=== PATIENT | female | born 1960 | race Caucasian/White ===

== ENCOUNTER 2017-01-14 18:11 | Inpatient (IN) | payer BC ==
--- NOTE | 2017-01-14 19:55 | RAD ---
TWO VIEWS LEFT ELBOW: Date: 01-14-17 History: Left elbow injury. FINDINGS: There is a nondisplaced fracture involving the radial head/neck junction. No additional fracture is seen. There is no evidence of a dislocation. IMPRESSION: Nondisplaced fracture at the left radial head/neck junction. POS: [facility]
--- NOTE | 2017-01-14 19:56 | RAD ---
THREE VIEWS LEFT WRIST: Date: 01-14-17 History: Left wrist injury. FINDINGS: There is a peripheral intravenous catheter overlying the lateral aspect of the wrist. There is no fr acture or dislocation. There is very slight ulnar minus configuration. No other osseous abnormality. IMPRESSION: No acute osseous abnormality left wrist. POS: [facility]
--- NOTE | 2017-01-14 19:58 | RAD ---
SINGLE VIEW RIGHT HUMERUS: Date: 01-14-17 History: Mechanical fall at home, left shoulder pain. FINDINGS: There is a spiral type fracture involving the proximal diaphysis of the right humerus. The distal fr acture fragment is displaced laterally and posterior by just greater than one-full shaft width. Xu ohumeral relationship is not well evaluated on this exam but there does not appear to be a dislocati on but a fracture in this region cannot be entirely excluded. IMPRESSION: Spiral type fracture with displacement of fracture fragments involving the proximal right humeral di aphysis. POS: [facility]
[2017-01-14] MEDS ORDERED: Ondansetron ODT 4 MG TAB PO PRN (21:56)
[2017-01-14] MEDS ORDERED: Dextrose 5% in Water 1,000 ML IV PRN (21:56)
[2017-01-14] MEDS ORDERED: HYDROcodone/Acetaminophen 10/325 mg Tablet PO PRN ×2 (21:56)
[2017-01-14] MEDS ORDERED: Ondansetron HCl/PF 4 MG/2 ML Vial IVP PRN (21:56)
[2017-01-14] MEDS ORDERED: Dextrose 50% Abboject 50 ML SYRINGE SLOW IVP PRN (21:56)
[2017-01-14] MEDS ORDERED: Promethazine HCl 25 MG/ML VIAL IM PRN (21:56)
--- NOTE | 2017-01-14 22:56 | HP ---
This is Robert Blackmon PA-C dictating for Dr. Robert Hawk. ATTENDING PHYSICIAN: Dr. Robert Hawk. CONSULTING PHYSICIAN: Dr. Crowe for Orthopedics. CHIEF COMPLAINT: Evaluation for status post fall. HISTORY OF PRESENT ILLNESS: This is a 56-year-old female who presented to the ED complaining of rig ht shoulder pain, status post mechanical fall at home, patient reported falling forward and landing in her forearms. The patient was given pain medication, IV fluids and Zofran via EMS. Patient elton ed any LOC, denies any head trauma, denies any injury or pain other than bilateral arms. The patien t was noted taking Xarelto for her atrial fibrillation. PAST MEDICAL HISTORY: Includes epiglottitis, atrial fibrillation, hypertension. PAST SURGICAL HISTORY: Includes kidney stone removal and surgical history of tubal ligation. PSYCHIATRIC HISTORY: Anxiety and depression. SOCIAL HISTORY: Denies any alcohol, drug or tobacco use. LABORATORY DATA: No laboratory findings. REVIEW OF SYSTEMS: All 10 systems were reviewed, otherwise stated in HPI were negative. PHYSICAL EXAMINATION: VITAL SIGNS: Blood pressure 103/56, pulse 71, respirations 18, pain 9/10, 99% on room air. GENERAL: No acute distress. HEENT: She is atraumatic, normocephalic. No JVD, no masses. Trachea is midline. PULMONARY: Clear bilaterally via auscultation. CARDIOVASCULAR: S1, S2, regular rate and rhythm. ABDOMEN: Soft, nontender, nondistended. EXTREMITIES: Upper extremities are in bilateral splints. Lower extremities, there are no deformiti es, moving bilateral lower extremities well. NEUROLOGIC: She does feel somewhat anxious, but otherwise GCS of 15. SKIN: Warm and dry. RADIOLOGIC FINDINGS: Showed humerus fracture on the right, nondisplaced fracture on the left radial head, wrist x-ray was negative. ASSESSMENT: 1. Status post fall. 2. Humerus fracture and radial head fracture. PLAN: Orthopedic consultation for operative fixation. The patient will be then placed n.p.o. for m idnight, continue IV fluids, pain medication and restart her home medications as soon as possible. The patient will be initiated with gastritis and deep venous thrombosis prophylaxis and patient is d iscussed with Dr. Hawk and agrees with the above plan.
[2017-01-14] MEDS: ALPRAZolam 1 MG TAB PO PRN (23:21)
[2017-01-14] MEDS ORDERED: Acetaminophen 1,000 MG in Premix Bag 1 BAG IVPB SCH (23:59)
[2017-01-15] MEDS ORDERED: Sodium Chloride 0.9% 1,000 ML IV SCH (00:01)
[2017-01-15 00:06] VITALS: BMI 26.3
[2017-01-15] MEDS: Fentanyl 100 MCG/2 ML VIAL SLOW IVP SCH ×3 (01:42→08:26)
[2017-01-15 05:41] LABS: #Lymphocytes 1.2 thou/uL (1.20-3.40); #Monocytes 0.4 thou/uL (0.11-0.59); #Neutrophils 3.1 thou/uL (1.40-6.50); %Basophils 0.1 % (0.0-1.0); %Eosinophils 0.3 % (0.0-10.0); %Lymphocytes 25.6 % (21.0-51.0); %Monocytes 9.1 % (0.0-10.0); Hematocrit 31.8 % (36.0-47.0); Mean Platelet Volume 6.2 fL (7.4-10.4); Red Blood Cell (RBC) Count 3.15 mill/uL (4.20-5.40); White Blood Cell (WBC) Count 4.7 thou/uL (4.8-10.8)
[2017-01-15 05:46] LABS: PTT 32.3 SEC (22.9-36.1); Prothrombin Time 14.8 SEC (12.0-14.7)
[2017-01-15] MEDS ORDERED: Acetaminophen 1,000 MG in Premix Bag 1 BAG IVPB SCH (06:00)
[2017-01-15 06:13] LABS: Anion Gap 10 mmol/L (10-20); BUN (Urea Nitrogen) 13 mg/dL (9.8-20.1); Calc. Creatinine Clearance 104 mL/min (70-130); Calcium 8.9 mg/dL (7.8-10.44); Carbon Dioxide 24 mmol/L (22-29); Chloride 109 mmol/L (98-107); Estimated GFR-MDRD 78
--- NOTE | 2017-01-15 08:13 | CON ---
DATE OF CONSULTATION: 01/14/2017 CHIEF COMPLAINT: Bilateral arm pain. HISTORY OF PRESENT ILLNESS: Ms. Yo is a 56-year-old female who lost her balance yesterday even ing and fell. She landed on her bilateral arms. She sustained injuries to the right shoulder and l eft elbow. She was found to have a proximal humerus fracture on the right and a nondisplaced left r adial neck fracture on the left. She was admitted to the hospital for pain control. She has been c omfortable although she does complain of a headache currently. She takes Ecru multiple times a day at baseline for back pain. PAST MEDICAL HISTORY: Chronic pain, hypertension, atrial fibrillation on Xarelto, and epiglottitis. PAST SURGICAL HISTORY: Previous kidney stone removal and tubal ligation. PSYCHIATRIC: History of anxiety and depression. SOCIAL HISTORY: The patient denies alcohol, tobacco or drug use. REVIEW OF SYSTEMS: Positive for shoulder and elbow pain, otherwise negative except for positives in the HPI. PHYSICAL EXAMINATION: VITAL SIGNS: Temperature is 97.9, pulse is 67, respiratory rate 16, oxygen saturation 96, blood pre ssure 109/69. GENERAL: The patient is alert, lying supine in no apparent distress. RESPIRATORY: Breathing comfortably. ABDOMEN: Soft, nontender, and nondistended. MUSCULOSKELETAL: The patient's right arm is in a splint, which is well padded. She is neurovascula rly intact in the hands bilaterally. She is able to flex and extend the digits. She has some bilat eral arm slings. The left arm is splinted as well. IMAGES: Right shoulder x-rays demonstrate advanced glenohumeral osteoarthritis. The patient has a proximal one third diaphyseal fracture of the humerus with displacement. The patient's left elbow x -rays demonstrated nondisplaced radial neck fracture. IMPRESSION: Right proximal humerus fracture and left radial neck fracture. PLAN: I had a discussion with the patient. At this point, she wants to pursue nonoperative treatme nt. I have described the risk and benefits of both surgical treatment and nonsurgical treatment. S he is hesitant and apprehensive for surgery, so I think it would be appropriate to try a nonoperativ e management of her fractures. Certainly, the radial neck fracture will heal without need for furth er intervention. The right proximal humerus fracture will be treated in her current splint. I woul d like to see her in 7-10 days in the clinic to change her to a clamshell brace and re-x-ray for olivia leblanc. She can discharge to home once pain is controlled and she is mobilizing.
[2017-01-15] MEDS: ALPRAZolam 1 MG TAB PO PRN (08:25)
[2017-01-15] MEDS ORDERED: HYDROcodone/Acetaminophen 10/325 mg Tablet PO PRN ×3 (08:36→09:44)
[2017-01-15] MEDS ORDERED: Nitrofurantoin Monohyd/M-Cryst 100 MG CAP PO SCH (09:00)
[2017-01-15] MEDS ORDERED: Famotidine/PF 20 mg/2ml Vial SLOW IVP SCH (09:00)
[2017-01-15] MEDS ORDERED: Metoprolol Tartrate 25 MG TAB PO SCH (09:00)
[2017-01-15] MEDS: HYDROcodone/Acetaminophen 10/325 mg Tablet PO SCH ×2 (10:15→14:58)
--- NOTE | 2017-01-15 12:07 | PRG-2 ---
DATE OF SERVICE: 01/15/2017 SUBJECTIVE: This is a 56-year-old female who is status post mechanical fall at home and was found t o have a humerus fracture and radial head fracture, humerus fracture on the right and left radial he ad. Patient has been seen by Orthopedic Surgery and requests a nonoperative treatment. She current ly due to injuries on both arms is unable to feed herself, is able to get up and walk around. Says that she is awaiting to figure out where she could go and stay with her sister or her where she will have people to help take care of her. She reports having some pain. She normally takes fo ur 10/325 [place] at home usually. Denies any other problems or complaints other than that at this t arnel. OBJECTIVE: VITAL SIGNS: Temperature is 97.9, pulse 66, respirations are 14, O2 sat is 97% on room air, blood p ressure is 107/68. GENERAL: No acute distress. HEENT: Atraumatic, normocephalic. PULMONARY: Clear to auscultation bilaterally. Symmetric chest expansion, normal rise. Nonlabored breathing. CARDIOVASCULAR: Regular rate and rhythm. ABDOMEN: Soft, nontender and nondistended. EXTREMITIES: Upper extremities are in bilateral splints. They are dressed in Erich bandages at this time as well. Lower extremities, there are no deformities. No edema noted. NEUROLOGIC: No focal neuro deficits. Alert and oriented x3. IMAGING DATA: Radiologic finding from yesterday showed humerus fracture on the right and nondisplac ed fracture on the left radial head. Wrist x-ray was negative. LABORATORY DATA: White blood cell count was 4.7, hemoglobin was 10.6, hematocrit was 31.8, MCV was 101, platelet count was 210. PT was 14.8, INR was 1.1, aPTT was 32.3. Sodium was 139, potassium wa s 4.1, chloride was 109, carbon dioxide was 24, BUN was 13, creatinine was 0.77, glucose was 102 and calcium was 8.9. ASSESSMENT: 1. She is status post fall. 2. Right humerus fracture. 3. Left radial head fracture. 4. Acute traumatic pain. PLAN: We will continue to have her work with PT, OT and see how she does getting around, moving medardo und. Family is to be coming around later today and we will continue to figure out where she is to g o and who will help take care of her. We will switch her pain management. We will continue on her home dose of [place] and then give some [place] for breakthrough pain as well. We will continue to asse ss pain and we will continue to monitor vital signs and check labs as needed. We will await figurin g out where the patient has a safe place to go home due to help being taken care of as she is unable to feed herself and we will continue her work with PT and OT. The patient was seen with Dr. Valencia. The plan of care was discussed with Dr. Valencia. This progress note needs to be cosigned by Dr. Arnaud Valencia.
[2017-01-15 12:23] VITALS: TEMP 97.8
[2017-01-15 18:16] VITALS: BP 88/52
--- NOTE | 2017-01-16 01:44 | DIS ---
DATE OF ADMISSION: 01/14/2017 DATE OF DISCHARGE: 01/15/2017 ADMISSION DIAGNOSES: 1. Status post mechanical fall. 2. Right humerus fracture. 3. Left radius fracture. 4. Acute traumatic pain. 5. Chronic pain, on chronic opiate medications. DISCHARGE DIAGNOSES: 1. Status post mechanical fall. 2. Right humerus fracture. 3. Left radius fracture. 4. Acute traumatic pain. 5. Chronic pain, on chronic opiate medications. CONSULTANTS: Dr. Crowe, Orthopedic Surgery. PROCEDURES: None. HOSPITAL COURSE: Piper Yo is a 56-year-old female, who presented to [place] [facility], status post fall at home. The patient was evaluated in the emergency room and found to have the above injuries. Trauma services admitted with Orthopedic Surgery consultants. After consultation with Orthopedic Surgery, the patient declined acute operative intervention. Her pain was controlled via p.o. analge sics. She was able to mobilize. Family and patient felt like she would be okay at home with family support to help with assist her with her ADLs. She was tolerating a general diet. Orthopedic surg amirah planned for outpatient followup. She was medically stable for discharge on 01/15/2017. DISCHARGE DISPOSITION: Home. DISCHARGE CONDITION: Good. PHYSICAL EXAMINATION: As documented in daily progress note dated 01/15/2017. DISCHARGE MEDICATIONS: The patient was discharged on Lamar q.4-6 hours p.r.n. for pain as we ll as her home medications. FOLLOWUP INSTRUCTIONS: The patient should follow up with Orthopedic Surgery as directed by fifi. She may call for an appointment. She does not need to follow up with Trauma Services formall y, but may call their office with any questions. DISCHARGE INSTRUCTIONS: Discharge instructions were provided to the patient prior to discharge. Krupa villasenor vocalized understanding. The patient should keep her dressings clean, dry and intact. She should be nonweightbearing bilateral upper extremities. This is merely a summary of the patient's hospitalization. For more in depth information, please se e her medical record in its entirety.
[2017-01-16] MEDS ORDERED: HYDROcodone/Acetaminophen 10/325 mg Tablet PO PRN ×2 (06:00)
== END 2017-01-15 17:06 | disposition home or self-care (01) | DRG 563 ==
LOC: ERS 18:11 → SURG B 21:50
PROVIDERS: ADMIT Specialist; ATTEND Specialist
PROC: 2W3AX1Z Immobilization of Right Upper Arm using Splint (ICD-10-PCS; principal; 2017-01-14)
PROC: 2W3DX1Z Immobilization of Left Lower Arm using Splint (ICD-10-PCS; 2017-01-14)
DX: S42.341A Displaced spiral fracture of shaft of humerus, right arm, initial encounter for closed fracture (principal); I48.91 Unspecified atrial fibrillation; I10 Essential (primary) hypertension; G89.11 Acute pain due to trauma; S52.135A Nondisplaced fracture of neck of left radius, initial encounter for closed fracture; W01.0XXA Fall on same level from slipping, tripping and stumbling without subsequent striking against object, initial encounter; Z79.02 Long term (current) use of antithrombotics/antiplatelets; F41.9 Anxiety disorder, unspecified; F32.9 Major depressive disorder, single episode, unspecified; G89.29 Other chronic pain; Z79.891 Long term (current) use of opiate analgesic
CPT/HCPCS: 24500; 24650; 36415; 80048; 85025; 85610; 85730; 93005; G0390; G8978-GP-CL; G8979-GP-CJ; G8987-GO-CN; G8988-GO-CL; J0131; J3010; S0028

== ENCOUNTER 2017-12-11 22:39 | Observation (INO) | payer BC, SELFPAY ==
[2017-12-12] MEDS ORDERED: Fioricet 325/50/40 mg Tablet PO SCH (00:30)
[2017-12-12] MEDS ORDERED: Ondansetron HCl/PF 4 MG/2 ML Vial IVP PRN (00:46)
[2017-12-12] MEDS ORDERED: Acetaminophen 325 MG TAB PO PRN (00:46)
[2017-12-12] MEDS ORDERED: Ondansetron ODT 4 MG TAB SL PRN (00:46)
[2017-12-12] MEDS: ALPRAZolam 1 MG TAB PO PRN ×4 (01:12→20:39)
[2017-12-12] MEDS: Sodium Chloride 0.9% 1,000 ML IV SCH ×2 (01:12→08:36)
[2017-12-12] MEDS ORDERED: HYDROcodone/Acetaminophen 10/325 mg Tablet PO SCH ×2 (01:15→06:00)
[2017-12-12 01:26] VITALS: BMI 25.9
[2017-12-12] MEDS ORDERED: Guaifenesin DM 100-10/5 ML UDCUP PO PRN (01:49)
[2017-12-12] MEDS: Famotidine 20 MG TAB PO SCH ×2 (08:30→20:37)
[2017-12-12 10:07] LABS: #Lymphocytes 1.2 thou/uL (1.20-3.40); #Monocytes 0.4 thou/uL (0.11-0.59); #Neutrophils 2.5 thou/uL (1.40-6.50); %Eosinophils 1.1 % (0.0-10.0); %Lymphocytes 28.2 % (21.0-51.0); %Monocytes 9.2 % (0.0-10.0); %Neutrophils 60.5 % (42.0-75.0); Hemoglobin 11.5 g/dL (12.0-16.0); Mean Corpuscular HGB CONC 34.2 g/dL (32.0-36.0); Mean Corpuscular Hemoglobin 34.3 pg (27.0-31.0); Mean Platelet Volume 6.4 fL (7.4-10.4); Platelet Count 208 thou/uL (130-400); RBC Distribution Width 11.9 % (11.5-14.5); Red Blood Cell (RBC) Count 3.35 mill/uL (4.20-5.40); White Blood Cell (WBC) Count 4.1 thou/uL (4.8-10.8)
[2017-12-12 10:25] LABS: Anion Gap 13 mmol/L (10-20); BUN (Urea Nitrogen) 13 mg/dL (9.8-20.1); Calc. Creatinine Clearance 98 mL/min (70-130); Carbon Dioxide 21 mmol/L (22-29); Chloride 109 mmol/L (98-107); Estimated GFR-MDRD 74; Glucose 85 mg/dL (70-105); Potassium 3.9 mmol/L (3.5-5.1); Sodium 139 mmol/L (136-145)
[2017-12-12] MEDS: HYDROcodone/Acetaminophen 10/325 mg Tablet PO PRN ×2 (12:26→20:39)
[2017-12-12] MEDS: Meclizine HCl 12.5 MG TAB PO PRN (12:27)
[2017-12-12] MEDS ORDERED: Lorazepam 1 MG TAB PO SCH (12:30)
--- NOTE | 2017-12-12 12:38 | HP ---
CHIEF COMPLAINT: Numbness and tingling sensation of the left face. HISTORIAN: The patient. HISTORY OF PRESENT ILLNESS: This is a 57-year-old female with past medical history of atrial fibrillation, hypertension, anxiety, vertigo, who is presenting with left-sided facial numbness which patient reports woke her up from a nap on the afternoon of the day of admission. Patient then went to [facility] for evaluation of left-sided facial numbness. CT scan of the head was done which was negative; however, the patient was sent to be monitored and for rule out CVA. REVIEW OF SYSTEMS: Positive for numbness, tingling, dizziness, lightheadedness , otherwise as documented in the HPI, all other systems were reviewed and are negative. PAST MEDICAL HISTORY: Hypertension, atrial fibrillation, anxiety. PAST SURGICAL HISTORY: Kidney stone removal, tubal ligation. PSYCHIATRIC HISTORY: Anxiety. SOCIAL HISTORY: Patient denies alcohol use. The patient denies any illicit drug use. The patient denies any smoking history. FAMILY HISTORY: Reviewed and noncontributory. ALLERGIES: STEROIDS, CODEINE, LEVAQUIN, LEVOFLOXACIN. CURRENT MEDICATIONS: Flecainide, Xarelto, tramadol, [place], metoprolol tartrate 12.5, meclizine, Xanax. PHYSICAL EXAMINATION: VITAL SIGNS: Blood pressure 130/73, heart rate of 76, respiratory rate of 16, temperature of 97.8, O2 sat of 98 on room air. GENERAL: Patient is lying in bed, does not appear to be in any acute distress. The patient is speaking in full sentences. HEENT: Normocephalic, atraumatic. Pupils are equal, round, and reactive to light. Extraocular muscles are intact. NECK: Supple, no lymphadenopathy. RESPIRATORY: Clear to auscultation bilaterally. No wheezes, no rales, no crackles appreciated. CARDIOVASCULAR: Positive S1, S2, regular rate and rhythm. No murmurs, no gallops, no rubs appreciated. ABDOMEN: Nontender, nondistended. Positive bowel sounds in all quadrants. BACK: Full range of motion or tenderness. EXTREMITIES: 5/5 upper extremity strength, 5/5 lower extremity strength. NEUROLOGIC: The patient's NIH stroke scale is 0. SKIN: Warm, dry, and intact. PSYCHIATRIC: Normal affect. EKG shows third-degree AV block. LABORATORY DATA: WBC 4.1, hemoglobin is 11.5, hematocrit 33.6. Sodium is 139, potassium is 3.9, chloride is 109, carbon dioxide 21, BUN is 13, creatinine 0.80. CT of the head was negative. ASSESSMENT AND PLAN: This is a 57-year-old female being admitted for rule out cerebrovascular accident. At this point, we have ordered an echo to evaluate the patient's heart. The patient's ABCD2 score is less than 2. Patient did not meet admission criteria; however, patient was sent from [facility]. Therefore, patient was admitted to be observed overnight. We started the patient on atorvastatin. Patient takes aspirin at home, so we will continue these medications. Patient's symptoms have resolved. The patient did have a history of uneven facial asymmetry. 1. Hypertension. Continue the patient on her home medication. 2. History of atrial fibrillation. Continue the patient on her home medication. 3. Gastrointestinal and deep venous thrombosis prophylaxis. Continue the patient on current medications. EUN[facility]
[2017-12-12] MEDS ORDERED: Iopamidol 370 76% 100 ML VIAL ONE (14:23)
--- NOTE | 2017-12-12 15:03 | CT ---
CTA NECK WITH CONTRAST: HISTORY: Dizziness and TIA symptoms. COMPARISON: None. TECHNIQUE: Multiple contiguous axial images were obtained in a CTA neck with contrast, and 3D and sagittal and c oronal MIP reformats were performed. FINDINGS: The aortic arch is unremarkable. The common carotid arteries and subclavian arteries show no signifi cant atherosclerotic disease. The left common carotid artery shows no significant atherosclerotic disease and branches into normal caliber internal and external carotid arteries. No significant stenosis per NASCET criteria is seen on either side. Both vertebral arteries are patent without significant atherosclerotic disease. The left vertebral a rtery is patent. There is an apparent filling defect in the left internal jugular vein, which could represent flow art ifact or could represent a thrombus in the left internal jugular vein. The left internal jugular vei n is smaller in size than the right internal jugular vein. No mucosal abnormality is seen in the nec k. No cervical adenopathy is appreciated. IMPRESSION: 1. No evidence of significant carotid artery stenosis. 2. Possible thrombus in the left internal jugular vein. Correlate with history of recent central ve nous catheter in this location. POS: [facility]
--- NOTE | 2017-12-12 15:22 | PDOC.PN ---
- Subjective Encounter Start Date: 12/12/17 Encounter Start Time: 11:30 Subjective: pt up in bed complains of some tingling to her left lower lip - Objective Resuscitation Status: Resuscitation Status FULL:Full Resuscitation Vital Signs & Weight: Vital Signs (12 hours) Temp Pulse Pulse Pulse Resp BP BP 12/12/17 12:00 98.6 F 76 16 12/12/17 09:24 67 69 129/74 133/70 12/12/17 09:23 129/74 133/70 12/12/17 08:25 97.6 F 68 16 12/12/17 08:00 98.4 F 63 16 12/12/17 04:00 97.6 F 68 16 BP Pulse Ox 12/12/17 12:00 106/56 L 97 12/12/17 09:24 12/12/17 09:23 12/12/17 08:25 12/12/17 08:00 104/63 97 12/12/17 04:00 106/62 98 Weight Weight 176 lb I&O: 12/11/17 12/12/17 12/13/17 06:59 06:59 06:59 Intake Total 1050 Balance 1050 Result Diagrams: 12/12/17 09:55 12/12/17 09:55 Phys Exam - Physical Examination Neck: no nodes, no JVD, supple, full ROM Respiratory: no wheezing, no rales, no rhonchi, wheezing present, clear to auscultation bilateral Cardiovascular: RRR, no significant murmur, no rub, gallop, irregular Gastrointestinal: soft, non-tender, no distention, positive bowel sounds Musculoskeletal: no edema, pulses present, edema present Neurological: non-focal, normal sensation, moves all 4 limbs Dx/Plan (1) TIA (transient ischemic attack) Code(s): G45.9 - TRANSIENT CEREBRAL ISCHEMIC ATTACK, UNSPECIFIED Status: Acute (2) HTN (hypertension) Code(s): I10 - ESSENTIAL (PRIMARY) HYPERTENSION Status: Acute (3) Afib Code(s): I48.91 - UNSPECIFIED ATRIAL FIBRILLATION Status: Acute - Plan pt to have MRI brain and will get cta neck to rule out stenosis -: echo also ordered -: will conitnue home meds -: pt on eliquis will continue * . Review of Systems - Review of Systems Cardiovascular: negative: chest pain, palpitations, orthopnea, paroxysmal nocturnal dyspnea, edema, light headedness, other Gastrointestinal: negative: Nausea, Vomiting, Abdominal Pain, Diarrhea, Constipation, Melena, Hematochezia, Other Genitourinary: negative: Dysuria, Frequency, Incontinence, Hematuria, Retention , Other Other: mild tingling to left lower lip - Medications/Allergies Allergies/Adverse Reactions: Allergies Allergy/AdvReac Type Severity Reaction Status Date / Time codeine Allergy Verified 12/12/17 00:56 levofloxacin [From Levaquin] Allergy Verified 12/12/17 00:56 STEROID SHOTS Allergy Intermediate Uncoded 12/12/17 00:56 Medications: Current Medications Hydrocodone Bitart/Acetaminophen ([place] 10/325) 1 tab PO QID PRN PRN Reason: Moderate Pain (4-6) Last Admin: 12/12/17 12:26 Dose: 1 tab Alprazolam (Xanax) 1 mg PO QIDPRN PRN PRN Reason: Anxiety Last Admin: 12/12/17 14:33 Dose: 1 mg Atorvastatin Calcium (Lipitor) 80 mg PO HS [facility] Famotidine (Pepcid) 20 mg PO BID [facility] Last Admin: 12/12/17 08:30 Dose: 20 mg Flecainide Acetate (Tambocor) 150 mg PO BID [facility] Guaifenesin/Dextromethorphan (Robitussin Dm) 15 ml PO Q4H PRN PRN Reason: Cough Lisinopril (Zestril) 2.5 mg PO DAILY [facility] Meclizine HCl (Antivert) 12.5 mg PO BIDPRN PRN PRN Reason: Dizziness Last Admin: 12/12/17 12:27 Dose: 12.5 mg Rivaroxaban (Xarelto) 20 mg PO QPM-WM [facility] Sodium Chloride (Flush - Normal Saline) 10 ml IVF Q12HR [facility] Last Admin: 12/12/17 08:31 Dose: Not Given Sodium Chloride (Flush - Normal Saline) 10 ml IVF PRN PRN PRN Reason: Saline Flush
--- NOTE | 2017-12-12 15:42 | MRI ---
MRI OF THE BRAIN WITHOUT CONTRAST: 12/12/17 COMPARISON: CTA of the neck, 12/12/17. HISTORY: Numbness on the left side of the face and mouth down left arm since last night. TECHNIQUE: Multiplanar and multisequence MRI images were obtained of the brain without contrast. FINDINGS: The brain demonstrates normal signal intensity on all obtained sequences. No restricted diffusion is seen to suggest an acute infarction. There is no evidence of hydrocephalus, intracranial hemorrhage or extra-axial fluid collection. The e xpected flow voids are present. The corpus callosum, pituitary, and craniocervical junction are unrem arkable. The calvarium and overlying soft tissues are unremarkable. The visualized paranasal sinuses and masto id air cells are well aerated. IMPRESSION: No evidence of acute intracranial abnormality. POS: [facility]
[2017-12-12] MEDS ORDERED: Flecainide 50 MG TAB PO SCH (15:45)
[2017-12-12] MEDS ORDERED: Rivaroxaban 10 MG TAB PO SCH (17:00)
[2017-12-12] MEDS: Atorvastatin Calcium 40 MG TAB PO SCH (20:37)
[2017-12-12] MEDS: Flecainide 50 MG TAB PO SCH (20:38)
[2017-12-12] MEDS: Rivaroxaban 10 MG TAB PO SCH (20:39)
[2017-12-12] MEDS ORDERED: Topiramate 25 MG TAB PO SCH (21:00)
--- NOTE | 2017-12-13 00:59 | CON ---
DATE OF CONSULTATION: 12/12/2017 REFERRING PHYSICIAN: Dr. Bharathi Turpin. REASON FOR CONSULTATION: Left-sided paresthesia. HISTORY OF PRESENT ILLNESS: Ms. Yo is a 57-year-old female who has been consulted for evaluation of left-sided paresthesia. Patient reports that yesterday, she woke up from a nap with sudden onset of left-sided facial numbness. Few minutes later, she developed the numbness and tingling on the left upper extremity. This concerned her and thus she called EMS to rule out stroke. She was taken to the [facility], where she had a CT scan of the head done, which was unremarkable. She was then transferred over to [place] for further evaluation. She reports that she also had dizziness with this episode. She also felt left facial droop. Her symptoms have mostly resolved since being here except she continues to have numbness and tingling in the left side of the lips as well as feels like her left face was drooping. She also continues to feel dizziness and lightheadedness. She feels as if everything is spinning around, she states that she has a history of severe anxiety but with this episode, she does not think that she was anxious. She also reports of having history of migraine headaches in the past, but has been headache free for several months; however, over the past few days, she has been having increasing episodes of feeling of seeing halo around objects as well as shadow lagging behind the object. This have been coming and going intermittently throughout the day for the past few days. She denies any headaches associated with these episodes. She reports that she has a history of atrial fibrillation and high blood pressure and recently, she has noted fluctuations in her blood pressure throughout the day, where it tends to run really low and goes elevated. The highest blood pressure that she noted is 135 to 140. PAST MEDICAL HISTORY: Significant for hypertension, atrial fibrillation, anxiety, history of vertigo and migraines. PAST SURGICAL HISTORY: Significant for kidney stone removal, tubal ligation. SOCIAL HISTORY: She denies smoking, alcohol use, or illicit drug use. FAMILY HISTORY: Noncontributory. CURRENT MEDICATIONS: Include a flecainide, Xarelto, tramadol, [place], metoprolol , Xanax, and meclizine. ALLERGIES: Include STEROIDS, CODEINE, LEVAQUIN, and LEVOFLOXACIN. REVIEW OF SYSTEMS: As mentioned in the HPI, otherwise negative. PHYSICAL EXAMINATION: VITAL SIGNS: Blood pressure of 112/58, pulse of 80, temperature of 98.4, respirations of 16, O2 sats of 97% on room air. GENERAL: Well-developed, well-nourished female in no apparent distress. RESPIRATORY: Clear to auscultation bilaterally. CARDIOVASCULAR: Regular rate and rhythm. NEUROLOGIC: Mental status: Patient is awake, alert, oriented x3. Speech and language: Fluent speech. Cranial nerves: Pupils are 3 mm and reactive. Visual gallahger are intact. Extraocular muscle movement are intact. No nystagmus noted. Face is symmetric. Tongue and uvula are midline. Motor exam showed normal tone and bulk with 5/5 strength in both upper and lower extremities. Sensory: Sensation is intact and symmetric. Deep tendon reflexes : 2+ reflexes in both upper and lower extremities. Babinski: Plantar responses flexion bilaterally. Coordination intact to [id number] and finger tapping bilaterally. LABORATORY DATA: Reviewed, which included CBC, BMP, which is significant for hemoglobin of 11.5, hematocrit 33.6, WBC of 4.1, otherwise unremarkable. IMAGING STUDIES: MRI brain without contrast was reviewed, which showed no acute intracranial abnormality and CT angiogram of the head and neck was reviewed, which showed no acute intracranial or extracranial vascular abnormality. Per Radiology, there may be a possible thrombus in the left intrajugular vein. IMPRESSION: 1. Transient episode of left-sided paresthesia. 2. Migraine aura. 3. Anxiety. ASSESSMENT AND PLAN: Ms. Yo is a 57-year-old female who presented with the episodes of left-sided paresthesia. This could be secondary to anxiety, migraine with aura, or transient ischemic attack. I had a lengthy discussion about different treatment options for migraine aura as well as have discussed about getting her stress and anxiety under control. I initially recommended Topamax for migraine prevention; however, during my review of chart I discovered that she has a history of kidney stone. For this reason, I would avoid Topamax for future use. She may be tried on low-dose amitriptyline. She is extremely concerned about medication side effects and how they react with flecainide and Xarelto. For this reason, it may be best for her to be seen by neuropsychology service director and let them approve amitriptyline to see if it is okay for this patient to start on medication. She may be followed up with her primary care physician. No further neurological workup needed from my standpoint. Thank you for consultation. EUNICE
[2017-12-13] MEDS ORDERED: Lisinopril 2.5 MG TAB PO SCH (09:00)
[2017-12-13] MEDS: Famotidine 20 MG TAB PO SCH ×2 (09:21→22:22)
[2017-12-13] MEDS: HYDROcodone/Acetaminophen 10/325 mg Tablet PO PRN ×4 (09:22→22:23)
[2017-12-13] MEDS: Flecainide 50 MG TAB PO SCH ×2 (09:22→22:22)
[2017-12-13] MEDS: ALPRAZolam 1 MG TAB PO PRN ×3 (09:28→20:28)
[2017-12-13] MEDS ORDERED: cloNIDine 0.1 MG TAB PO SCH (13:45)
[2017-12-13] MEDS: Meclizine HCl 12.5 MG TAB PO PRN (18:17)
[2017-12-13 19:15] VITALS: TEMP 98.5
[2017-12-13 20:06] VITALS: BP 101/59
[2017-12-13] MEDS: Rivaroxaban 10 MG TAB PO SCH (22:22)
[2017-12-13] MEDS: Atorvastatin Calcium 40 MG TAB PO SCH (22:22)
--- NOTE | 2017-12-14 02:02 | DIS ---
DATE OF ADMISSION: 12/11/2017 DATE OF DISCHARGE: 12/13/2017 PRIMARY CARE PHYSICIAN: Out of town. PRIMARY CARDIOVASCULAR SURGEON: Out of town. DISCHARGE DIAGNOSES: 1. Left-sided paraesthesias transient ischemic attack versus migraine aura. 2. 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 3. Migraine aura. 4. History of atrial fibrillation on chronic anticoagulation. 5. Hypertension. 6. Anxiety. DISCHARGE MEDICATIONS: Remain the same as admission, resume home medications. New medication, cloni dine 0.1 mg p.o. t.i.d. p.r.n. Resume Xarelto 20 mg at bedtime and flecainide 150 p.o. b.i.d., lisin opril 2.5 mg daily. PROCEDURES DONE IN THE HOSPITAL: 1. MRI of the brain which is unremarkable for any acute changes. CT angio, which shows possible lef t-sided IJ thrombus without any significant carotid artery disease. 2. Transthoracic echocardiogram, which shows grade I/III diastolic dysfunction without any thrombus. EF is 55%-60%. HISTORY OF PRESENT ILLNESS: Ms. oY is a 57-year-old female with past medical history as above, who presented to the emergency room with complaints of numbness and tingling sensation of the left fa ce. She had a normal CT scan done in the emergency room, EKG showed third-degree AV block. She was admitted on observation status. Patient was started on atorvastatin, takes aspirin at home. Please see admission history and physical for further details. HOSPITAL COURSE: Patient was seen by Neurology and underwent MRI of the brain and CT angio. She was found to have normal MRI and the diagnosis was likely transient ischemic attack versus migraine aura . Dr. Roldan saw the patient for neurology and recommended amitriptyline, but the patient refused. e also refused atorvastatin, which was ordered for her. She would rather discuss this with her own [facility] physician and cardiovascular surgeon. Echo was unremarkable. CT angio showed possible left IJ thrombus. I discussed this case briefly by Dr. Thompson was colon and rectal surgeon for cardiovascular surgeon. At this time, he has reviewed the results and in h is opinion, it might be actually a thrombus and current dose of Xarelto is sufficient. Once again be cause the patient wants to follow up with her own cardiovascular surgeon and is hemodynamically stabl e, she will be discharged and resume her Xarelto. I have seen and examined the patient prior to discharge and I have answered multitude of her question s and most of these needing to be addressed by her primary care physician. I have directed to her PC P. PHYSICAL EXAMINATION: GENERAL: This morning is unremarkable. Vital signs are stable. CHEST: Clear to auscultation bilaterally. HEART: Rate and rhythm is regular without any murmur, rubs, or gallops. NEUROLOGIC: Nonfocal. She will be discharged. Discharge plan was discussed extensively with the patient who somewhat appea rs unsatisfied, but I have emphasized that her acute issues have resolved and she would need to discu ss the chronic issues with her PCP and cardiovascular surgeon in [facility].
--- NOTE | 2017-12-14 19:20 | EKG ---
Test Reason : Blood Pressure : / mmHG Vent. Rate : 070 BPM Atrial Rate : 070 BPM P-R Int : 232 ms QRS Dur : 120 ms QT Int : 478 ms P-R-T Axes : 069 053 055 degrees QTc Int : 516 ms Sinus rhythm with 1st degree A-V block Non-specific intra-ventricular conduction delay T wave abnormality, consider anterior ischemia Abnormal ECG Confirmed by DARIEL KUMARI DO ([id number]), staff editor DENIA DESIR ([id number]) on 12/14/2017 7:19:50 PM Referred By: Confirmed By:DARIEL KUMARI DO
== END 2017-12-13 22:39 | disposition home or self-care (01) ==
LOC: ERS 22:39 → 2SE 23:55
PROVIDERS: ADMIT Internal Medicine; ATTEND Internal Medicine
DX: R20.2 Paresthesia of skin (principal); G43.109 Migraine with aura, not intractable, without status migrainosus; I10 Essential (primary) hypertension; I48.91 Unspecified atrial fibrillation; Z79.01 Long term (current) use of anticoagulants; Z79.02 Long term (current) use of antithrombotics/antiplatelets; Z79.899 Other long term (current) drug therapy; Z91.041 Radiographic dye allergy status; Z88.5 Allergy status to narcotic agent
CPT/HCPCS: 36415; 70498; 70551; 80048; 85025; 93005; 93306; 96360; 96361; A4216; G0378; G8978-GP-CJ; G8979-GP-CJ; G8980-GP-CJ; G8987-GO-CI; G8988-GO-CI; G8989-GO-CI; G8996-GN-CH; G8997-GN-CH

== ENCOUNTER 2018-01-03 15:31 | Observation (INO) | payer SELFPAY ==
[2018-01-03 16:47] LABS: #Lymphocytes 1.4 thou/uL (1.20-3.40); #Monocytes 0.3 thou/uL (0.11-0.59); #Neutrophils 2.4 thou/uL (1.40-6.50); %Basophils 1.2 % (0.0-1.0); %Eosinophils 1.1 % (0.0-10.0); %Lymphocytes 33.6 % (21.0-51.0); %Monocytes 7.6 % (0.0-10.0); %Neutrophils 56.7 % (42.0-75.0); Hemoglobin 11.3 g/dL (12.0-16.0); Mean Corpuscular HGB CONC 31.7 g/dL (32.0-36.0); Mean Corpuscular Hemoglobin 32.5 pg (27.0-31.0); Mean Platelet Volume 6.9 fL (7.4-10.4); Platelet Count 230 thou/uL (130-400); RBC Distribution Width 12.4 % (11.5-14.5); Red Blood Cell (RBC) Count 3.48 mill/uL (4.20-5.40); White Blood Cell (WBC) Count 4.2 thou/uL (4.8-10.8)
--- NOTE | 2018-01-03 16:56 | RAD ---
PORTABLE CHEST ONE VIEW: Date: 01-03-18 Time: 4:16 p.m. History: Chest pain FINDINGS: The heart size is normal. The lungs are well expanded without focal areas of consolidation, pneumotho raxes, or pleural effusions. There is an old fracture of the right humerus. IMPRESSION: No radiographic evidence of acute cardiopulmonary process. POS: H
[2018-01-03 17:12] LABS: ALT (SGPT) 17 U/L (8-55); AST (SGOT) 21 U/L (5-34); Albumin 4.2 g/dL (3.5-5.0); Alkaline Phosphatase 80 U/L (40-150); Anion Gap 12 mmol/L (10-20); BUN (Urea Nitrogen) 13 mg/dL (9.8-20.1); Bilirubin, Total 0.5 mg/dL (0.2-1.2); Calc. Creatinine Clearance 0 mL/min (70-130); Calcium 9.4 mg/dL (7.8-10.44); Carbon Dioxide 23 mmol/L (22-29); Chloride 108 mmol/L (98-107); Estimated GFR-MDRD 73; Globulin 3.2 g/dL (2.4-3.5); Glucose 91 mg/dL (70-105); Lipase 72 U/L (8-78); Protein, Total 7.4 g/dL (6.0-8.3); Sodium 139 mmol/L (136-145)
[2018-01-03 17:16] LABS: CKMB 0.4 ng/mL (0-6.6); Troponin I Less than 0.010 ng/mL (< 0.028)
[2018-01-03 18:43] VITALS: BMI 25.7
[2018-01-03] MEDS ORDERED: Nitroglycerin 0.4 MG TAB (25 Tab Bottle) PO PRN (20:03)
[2018-01-03] MEDS ORDERED: HYDROcodone/Acetaminophen 10/325 mg Tablet PO PRN (20:03)
[2018-01-03] MEDS ORDERED: Guaifenesin DM 100-10/5 ML UDCUP PO PRN (20:03)
[2018-01-03] MEDS ORDERED: ALPRAZolam 1 MG TAB PO PRN (20:03)
[2018-01-03] MEDS ORDERED: Acetaminophen 325 MG TAB PO PRN (20:03)
[2018-01-03 20:29] LABS: Troponin I Less than 0.010 ng/mL (< 0.028)
[2018-01-03] MEDS ORDERED: Metoprolol Tartrate 25 MG TAB PO SCH (21:00)
[2018-01-03] MEDS ORDERED: Famotidine 20 MG TAB PO SCH (21:00)
[2018-01-03] MEDS ORDERED: Flecainide 50 MG TAB PO SCH (21:00)
[2018-01-03] MEDS ORDERED: Rivaroxaban 10 MG TAB PO SCH (21:30)
--- NOTE | 2018-01-03 23:00 | HP ---
PRIMARY CARE PHYSICIAN: Dr. Gareth Calles in [place]. PRIMARY KILN FIREMAN: Dr. Jerrod Ayala at [facility] in [place]. REASON FOR ADMISSION: Chest pain. HISTORY OF PRESENTING ILLNESS: The patient gives history of retrosternal chest pain which happened while she was in a doctor's office with her friend. She was accompanying her friend to the doctor's visit. This was like someone sitting on her chest. Ridgely like 10/10 in intensity. They checked her vital signs there and finally called EMS. EMS found her to be in atrial fibrillation which is chronic. She was brought to the ER and was given aspirin and nitro paste which seemed to have resolved the chest pain completely now. She has no complaints of cough or expectoration. No history of fever. No complaints of shortness of breath, palpitations, PND or orthopnea. Patient has had three stress tests in her life. The last one was last year at [facility] in [place], which was normal per patient. Has not had any angiogram per patient. PAST MEDICAL AND SURGICAL HISTORY: Anxiety disorder, chronic atrial fibrillation, hypertension, dyslipidemia, kidney stone removal, tubal ligation. CURRENT MEDICATIONS: The patient is on flecainide 150 mg twice daily, Lipitor 20 mg daily, Xarelto 20 mg daily, Hartsel p.r.n. for pain, meclizine p.r.n. for dizziness, Xanax 1 mg 4 times daily, which she takes for the most part. ALLERGIES: STEROIDS SHOTS and LEVAQUIN. PERSONAL HISTORY: Does not abuse alcohol or drugs. No history of smoking. FAMILY HISTORY: Patient is adopted and does not know much about her biological father. She lives alone. CODE STATUS: FULL. Power of manufacturing planner is her daughter, Ms. Matthew, number to reach her is [phone]. REVIEW OF SYSTEMS: The following complete review of systems was negative, unless otherwise mentioned in the HPI or below: Constitutional: Weight loss or gain, ability to conduct usual activities. Skin: Rash, itching. Eyes: Double vision, pain. ENT/Mouth: Nose bleeding, neck stiffness, pain, tenderness. Cardiovascular: Palpitations, dyspnea on exertion, orthopnea. Respiratory: Shortness of breath, wheezing, cough, hemoptysis, fever or night sweats. Gastrointestinal: Poor appetite, abdominal pain, heartburn, nausea, vomiting, constipation, or diarrhea. Genitourinary: Urgency, frequency, dysuria, nocturia. Musculoskeletal: Pain, swelling. Neurologic/Psychiatric: Anxiety, depression. Allergy/Immunologic: Skin rash, bleeding tendency. PHYSICAL EXAMINATION: GENERAL: The patient is a 57-year-old female who is currently not in any acute distress and is chest pain free. VITAL SIGNS: Blood pressure 123/58, pulse 66 per minute, respiratory rate 18 per minute, temperature 98.2 degrees Fahrenheit, saturating 100% on room air. NECK: Supple, no elevated JVD. EYES: Extraocular muscles intact. Pupils reacting to light. ORAL CAVITY: Mucous membranes are moist. No exudates or congestion. CARDIOVASCULAR SYSTEM: S1, S2 heard. Regular rhythm. RESPIRATORY SYSTEM: Air entry 2+ bilateral. No rales or rhonchi. ABDOMEN: Soft, bowel sounds heard. No tenderness, rigidity or guarding. EXTREMITIES: No peripheral edema or calf tenderness. VASCULAR SYSTEM: Peripheral pulses 2+ bilateral, no ischemic ulcerations or gangrene. CENTRAL NERVOUS SYSTEM: No gross focal deficits noted. Patient is alert, awake , oriented well. PSYCHIATRIC SYSTEM: The patient's mood is a bit anxious, otherwise no hallucinations or delusions. IMAGING DATA AND LABORATORY DATA: EKG done shows normal sinus rhythm at 69 beats per minute. There is nonspecific ST-T wave changes noted. Patient has had a recent echo done on 12/13/2017 which shows an EF of 55%-60%. Troponin x1 is negative. White count of 4, hemoglobin and hematocrit 11 and 35, MCV is 102 , platelet count is 230 with 56% neutrophils. Electrolytes are stable. BUN 13 , creatinine 0.8, serum glucose 91. Liver enzymes within normal limits. CK-MB 0.4, albumin is 4.2, lipase is 72. Chest x-ray done shows no acute cardiopulmonary abnormalities. CLINICAL IMPRESSION AND PLAN: The patient will be under observation on telemetry for chest pain, rule out acute coronary syndrome. Likely, this appears to be an anxiety attack. We will trend 2 more sets of troponin. Patient has had nearly 3 stress tests in her life, the last one being one year back. She follows up with a lard renderer at [facility] in [place]. The patient is for enzymatic rule out only. She is currently chest pain free. We will continue her flecainide, Xarelto, Lipitor, Xanax and Hartsel as before. Patient states she does not take blood pressure medications as they tend to drop her blood pressure down. We will place her on a small dose of Lopressor for cardiac protection. If patient remains chest pain free, no further investigations will be done apart from the enzymes. We will continue to closely monitor her on telemetry. Addendum: please note patient had negative enzymes and was feeling good and wanted to go home late night. This is a same day observation admit and discharge summary. EUNICE
[2018-01-03 23:38] VITALS: BP 109/62; TEMP 98.1
[2018-01-03 23:50] LABS: Troponin I Less than 0.010 ng/mL (< 0.028)
[2018-01-04] MEDS ORDERED: Lisinopril 2.5 MG TAB PO SCH (09:00)
[2018-01-04] MEDS ORDERED: Atorvastatin Calcium 20 MG TAB PO SCH (09:00)
[2018-01-04] MEDS ORDERED: Aspirin 81 mg Enteric Coated Tablet PO SCH (09:00)
[2018-01-04] MEDS ORDERED: Rivaroxaban 10 MG TAB PO SCH (17:00)
== END 2018-01-04 00:08 | disposition left against medical advice (07) ==
LOC: ERS 15:31 → 2SW 18:39
PROVIDERS: ADMIT Internal Medicine; ATTEND Internal Medicine
DX: R07.2 Precordial pain (principal); I48.2 Chronic atrial fibrillation; F41.9 Anxiety disorder, unspecified; I10 Essential (primary) hypertension; E78.5 Hyperlipidemia, unspecified; Z79.01 Long term (current) use of anticoagulants; Z79.899 Other long term (current) drug therapy; Z88.8 Allergy status to other drugs, medicaments and biological substances
CPT/HCPCS: 36415; 71045; 80053; 82553; 83690; 84484; 85025; 93005; 94760; G0378